=== PATIENT | male | born 1995 | race Caucasian/White ===

== ENCOUNTER 2025-09-27 01:09 | Emergency (ER) | payer MEDICAID ==
[~2025-09-27] VITALS: Ht 193 cm; Wt 83.9 kg
[2025-09-27] MEDS ORDERED: IBUP-1957 PO (02:03)
[2025-09-27] MEDS ORDERED: IBUPROFEN 400 MG TABLET ONE (02:30)
[2025-09-27] MEDS: IBUPROFEN 400 MG TABLET PO ONE (02:32)
[2025-09-27 03:30] VITALS: BP 121/76; TEMP 98.5; O2SAT 98
== END 2025-09-27 03:31 | disposition home or self-care (01) ==
LOC: ER 01:30
DX: S13.4XXA Sprain of ligaments of cervical spine, initial encounter (principal); S80.02XA Contusion of left knee, initial encounter; S30.0XXA Contusion of lower back and pelvis, initial encounter; Z79.1 Long term (current) use of non-steroidal anti-inflammatories (NSAID); W18.30XA Fall on same level, unspecified, initial encounter; Y93.89 Activity, other specified; Y92.89 Other specified places as the place of occurrence of the external cause; Y99.9 Unspecified external cause status
CPT/HCPCS: 72131-TC; 73564-TC